=== PATIENT | female | born 1990 | race Caucasian/White ===

== ENCOUNTER 2018-11-12 00:47 | Emergency (ER) | payer OTHER ==
[~2018-11-12] VITALS: Ht 152.4 cm; Wt 67.6 kg
[~2018-11-12 00:47] MED LIST: INTESTINEX680 MG PO; MUCUS ER1200 MG PO; ZANTAC150 MG PO; ZITHROMAX200 MG PO
[2018-11-12] MEDS ORDERED: AMOX-CLAV 875-1 EACH PO (02:15)
[2018-11-12] MEDS ORDERED: DOLOGESIC-DF 51 EACH PO (02:15)
== END 2018-11-12 02:22 | disposition home or self-care (01) ==
LOC: ER 00:47
DX: H66.91 Otitis media, unspecified, right ear (principal)